=== PATIENT | male | born 1975 | race Caucasian/White ===

== ENCOUNTER → 2018-01-27 | Outpatient (CLI) | payer OTHER | END | disposition home or self-care (01) | LOC: WOUND 10:19 | PROVIDERS: ATTEND Internal Medicine | DX: S31.809A Unspecified open wound of unspecified buttock, initial encounter (principal); K64.1 Second degree hemorrhoids; K62.89 Other specified diseases of anus and rectum; M06.9 Rheumatoid arthritis, unspecified; L40.9 Psoriasis, unspecified; Z87.891 Personal history of nicotine dependence; X58.XXXA Exposure to other specified factors, initial encounter; Y93.89 Activity, other specified; Y92.89 Other specified places as the place of occurrence of the external cause; Y99.8 Other external cause status | CPT/HCPCS: 87070; 87077; 87147; 87186; 87205; 97597; 99215 ==